=== PATIENT | female | born 1970 | race Caucasian/White ===

== ENCOUNTER → 2016-11-19 | Outpatient (CLI) | payer OTHER ==
--- NOTE | 2016-11-19 13:10 | PAP/PSG TECHNICIAN REPORT ---
[facility] Financial Representative Polysomnogram Report Study name: None Report date: 11/19/2016 Study date: 11/19/2016 Referring Physician: Master Schulte M.D. Name: JOSE ENRIQUE PAULSON Interpreting Physician: Ziyad Schulte M.D. Date of : 1970 Financial Representative: Kanwal Terrell RPS. Sex: Female Age: 46 StudyType: PSG Weight: 205 lbs Height: 46 years, Height 5' 1" Neck Circum: BMI: 38.73 Medications: Vitamin D3 [id number], Bactroban 2%, Albuterol, Asmanex Patient History Patient has a history of feeling tired all of the time. She is unsure if she snores, but has never been told that she stops breathing. She started working third shift in September of this year and she often has difficulty sleeping during the day. She stated that she does wake with headaches, but not every day. [place] Sleepiness Scale is 11/24. ETCO2 monitoring was done. Parameters Monitored NPSG: E1-M2, E2-M1, Fp1-M2, Fp2-M1, F3-M2, F4-M2, F4-M1, C3-M2, C4-M2, C4-M1, O1-M2, O2-M2, O2-M1, T3-M2, T4-M1, P3-M2, P4-M1, CHIN1, CHIN2, HR, EKG, Legs, PFLOW, SNOR, FLOW, CFLOW, Tidal Volume, THOR, ABDO, SpO2, PLTH, CPRESS, ETCO2 Wave, ETCO2, pH Sleep Architecture Sleep Stages Time at Lights Off 8:59:54 AM STAGES Time (min.) TST (%) Time at Lights On 12:47:24 PM Wake 66.0 -- Total Recording Time (TRT) 228.00 min. N1 21.0 13 Total Sleep Period (TSP) 208.0 min. N2 126.5 78 Total Sleep Time (TST) 161.5min. N3 14.0 9 Awake Time 66.5 min. REM 0.0 0 Wake after Sleep Onset 54.5 min. Sleep Efficiency (SE) 71 % Sleep Onset Latency (MISTI) 11.5 min. Number of Stage 1 Shifts None Awakenings 21 Stage Changes 70 Number of REM periods N/A REM 0.0 0 REM Latency NONE min. NREM 161.5 100 Body Position Analysis Supine Right Left Side Prone Vertical Total Sleep Time (min.) 60.1 61.9 61.5 123.40 0.2 4.4 Total Sleep Time (%) 24% 38% 38% 76 0% 100% Total Sleep Time REM (min.) 0.0 0.0 0.0 None 0.0 0.0 Total Sleep Time NREM (min.) 38.0 61.9 61.5 None 0.0 0.1 Intermittent Wake (min.) 22.1 12.0 27.4 None 0.2 4.3 Total Sleep Period (%) 27% None None None None None Arousals Myoclonus (PLM) * Events Count Index Events Count Index Spontaneous 23 9 Events Awake (PLMW) 2 1.8 Respiratory 1 0.4 Events Asleep w/ Arousal (PLMA) 1 0.4 PLM 1 0 Events Asleep w/o Arousal (PLMS) 22 8.2 Snoring 0 0 Total Asleep 23 8.5 Total 25 9 Total 25 7 Respiratory Analysis * CA OA MA CH H RERA Total Count 0 0 0 0 2 0 2 Index 0.0 0.0 0.0 0 0.7 0 0.7 Mean Duration 0.0 0.0 0.0 0.00 24.5 0.0 24.5 Longest Duration 0.0 0.0 0.0 0.00 0.0 0.0 34.8 Respiratory Event Summary Total Supine ~Supine Right Left Prone REM NREM Apneas Count 0 0 0 0 0 N/A N/A 0 Index 0.0 0 0 0.0 0.0 N/A N/A 0 Hypopneas (4% Desat) Count 2 1 1 0 1 N/A N/A 2 Index 0.7 1.6 0 0.0 1.0 N/A N/A 0.7 Apneas & All Hypopneas Count 2 1 1 0 1 N/A N/A 2 Index 0.7 2 0 0 1 N/A N/A 0.7 Respiratory Events (Property Field Adjuster+All Hyp+RERA) Count 2 1 1 0 1 N/A N/A 2 Index 0.7 2 0 0.0 1.0 N/A N/A 0.7 Respiratory Related Arousal Count 1 1 1 0 1 N/A N/A 1 Index 0.4 0 0 0 1 N/A N/A 0 Snoring Analysis Supine Right Left Prone REM NREM Total Snore duration 0.5 min Snores count 14 0 9 N/A N/A 23 23 Snore mean duration 1.2 Sec Snores index 22 0 9 N/A N/A 8.5 8.5 TST with snoring (%) 0.3% SpO2 Analysis Total REM NREM Awake <50% 0.0 min. 0.0 min. 0.0 min. 0.0 min. 51 - 60% 0.0 min. 0.0 min. 0.0 min. 0.0 min. 61 - 70% 0.0 min. 0.0 min. 0.0 min. 0.0 min. 71 - 80% 0.5 min. 0.0 min. 0.2 min. 0.2 min. 81 - 90% 7.0 min. 0.0 min. 5.6 min. 1.4 min. 91 - 100% 212.0 min. 0.0 min. 152.8 min. 59.2 min. Average 94 0 94 95 Minimum SpO2 80 N/A 80 80 Desaturation Event Index 1.6 0.0 2.2 0.0 # Desat. Events below 89% 2 N/A 2 N/A Time(%) with Saturation below 89% 2.1 0.0 1.9 0.2 Time(min.) with Saturation below 89% 4.6 0.0 4.1 0.5 Heart Rate Analysis End Tidal CO2 Analysis Min (bpm) Max (bpm) Average (bpm) TSP (mins) % of TSP Awake 67 112 84 Above 55 mmHg 0.0 0.0 NREM 64 104 77 50-55 mmHg 0.0 0.0 REM N/A N/A N/A 45-50 mmHg 4.0 2.5 Overall 64 104 77 40-45 mmHg 94.4 58.5 35-40 mmHg 36.3 22.5 30-35 mmHg 12.3 7.6 Average ETCO2 0.2 Supplemental O2 Values Minimum O2 level: None Value Start Time End Time Financial Representative Comments Ms. Paulson slept in the right, left, and supine positions. No cardiac arrhythmias or PLMs were noted. No bruxism noted. Snoring was not noted and scored as a 0 on a scale of 1 through 5. (0=no snoring, 5=snoring loud enough to be heard through a closed door or down the spann way). She was awake often during the test. She stated that she felt awful and she sounded as if she was getting sick, all stuffy and sneezing. She awoke at around 1230 and stated that she felt a migraine coming on and she felt terrible and that she wanted to end the test. Ms. Paulson stated that she didn't think she slept at all. No Hypopneas or apneas were seen. The final report will be interpreted and signed by a sleep physician. The completed physician report will then be placed in the patient medical record. Therapy (cm H2O) 0 TIB (min.) 227.5 TST (min.) 161.5 Sleep Onset (min.) 11.5 REM Onset From Sleep (min.) NONE Sleep Efficiency % 71 Wakefulness (%) 29 Wakefulness (min.) 66.5 NREM 1 (%) 13 NREM 1 (min.) 21.0 NREM 2 (%) 78 NREM 2 (min.) 126.5 NREM 3 (%) 9 NREM 3 (min.) 14.0 REM (%) 0 REM (min.) 0.0 # Arousals 25 Arousal Index 9 # Snore 23 Snore Index 8.5 AHI 0.7 AHI Supine 2 AHI Non-Supine 0 NREM AHI 0.7 REM AHI N/A RDI 0.7 # Obstructive Apnea 0 # Central Apnea 0 # Mixed Apnea 0 # Hypopneas 2 RERAs 0 Total Respiratory Events 2 Time Below SpO2 89% (min.) 4.1 Mean NREM SpO2 (%) 94 Mean REM SpO2 (%) N/A Mean Sleep SpO2 (%) 94 Min NREM SpO2 (%) 80 Min REM SpO2 (%) N/A Position Supine (min.) 60.1 Position Non-supine (min.) 123.5 LM Index Sleep 8.5 LM Index NREM 8.5 LM Index REM N/A Mean Heart Rate (bpm) 77 Min Heart Rate (bpm) 64
--- NOTE | 2016-12-06 21:34 | POLYSOMNOGRAPH REPORT ---
REFERRING PERSON: Ziyad Schulte MD PERFORMANCE REPORTER: Kanwal Terrell Ms. Paulson is a 46-year-old female, who complains of excessive daytime sleepiness. She is not sure if she snores, but has never been told that she stops breathing when she sleeps at night. She started working third shift in September of this year and has had difficulty sleeping during the day. She often awakes with headaches, but not daily headaches. Her [place] sleepiness scale score on the evening of this study is 11. BMI is 38.73. Following the technical and digital specifications of the [place] [employer] (AASM) a standard diagnostic polysomnogram was performed monitoring EEG, EOG, EMG (chin and leg deviations), oxygen saturation, body position, digital video, respiratory effort and airflow. The sleep Stage and event scoring was based on the AASM Manual for the Scoring of Sleep and Associated Events 2007 edition. Apneas are defined as a drop in the peak thermal sensor excursion by >90% of baseline for at least 10 seconds. Hypopneas were scored using the 4% oxygen desaturation rule (4A-[employer]ic[employer]) and a decrease in the nasal pressure excursions by >30% of baseline for at least 10 seconds. Respiratory effort-related arousal (RERA's) is defined as a sequence of breaths lasting at least 10 seconds characterized by increasing respiratory effort or flattening of the nasal pressure waveform leading to an arousal from sleep when the sequence of breaths does not meet criteria for an apnea or hypopnea. Apnea Hypopnea index (AHI) is defined as the number of apneas and hypopneas occurring in an hour of sleep. Respiratory disturbance index (RDI) is defined as the number of apneas, hypopneas, and RERA's occurring in an hour of sleep. Ms. Paulson's total sleep period time was 208 minutes. Total sleep time was only 161.5 minutes. Sleep efficiency was 71%. Latency to sleep onset was 11.5 minutes with wake after sleep onset of 54.5 minutes. Total non-REM sleep time for the entire duration of this study was 161.5 minutes. She spent 13% of that time in N1 sleep, 78% in N2 sleep, and 9% in N3 sleep. There were 25 cortical arousals from sleep. One of these arousals was due to respiratory events, one due to periodic limb movements of sleep and the remaining 23 were spontaneous. There were 23 periodic limb movements noted on this test. Limb movement index was 8.5. Limb movement with arousal index was 0.4. There were no central obstructive or mixed apneas on this test. There were 2 hypopneas and no RERA. Apnea-hypopnea index was 0.7, which is normal. There were 23 snoring events. Total sleep time with snoring was 0.3%. Mean saturation was 94% with desaturations transiently to 80%; however, saturations remained below 89% for only 4.6 minutes of recorded time. There was no cardiac ectopy noted on this study. Heart rates ranged from a low of 64 beats per minute to a high of 104 beats per minute during sleep. End tidal CO2 was recorded on this test. This data appears to be close to complete. End tidal CO2s were between 40 and 45 mmHg for 58.5% of total sleep period time, between 35 and 40 mmHg for 22.5% and between 30 and 35 mmHg for 7.6% of total sleep period time. IMPRESSION AND PLAN: A 46-year-old female without evidence of sleep disordered breathing, nocturnal hypoxemia, bruxism, parasomnia or clinically significant periodic limb movements of sleep on this test.
== END | disposition home or self-care (01) ==
LOC: C.NEUR 07:58
PROVIDERS: ATTEND Family Medicine
DX: F51.11 Primary hypersomnia (principal); R06.83 Snoring; R53.81 Other malaise; R13.10 Dysphagia, unspecified; R53.83 Other fatigue

== ENCOUNTER 2017-06-19 11:00 | Emergency (ER) | payer OTHER ==
[~2017-06-19] VITALS: Ht 154.9 cm; Wt 92.9 kg
[2017-06-19 11:07] VITALS: Ht 154.9 cm; Wt 92.9 kg
--- NOTE | 2017-06-19 11:54 | EMERGENCY ROOM VISIT NOTE ---
ED Visit Note First contact with patient: 11:27 CHIEF COMPLAINT: Dog bite HISTORY OF PRESENT ILLNESS: This 47-year-old female patient presents to the emergency department 7 days after being bitten by a dog on her right forearm while [place] the dog park[place] The patient tried to contact the owners and was unable. The patient did go to an urgent care center and get the wound cleaned out. She was also put on antibiotics. She denies any signs of infection such as redness or swelling.. REVIEW OF SYSTEMS: A 6 system review of systems was completed with positives and pertinent negatives listed in the HPI. ALLERGIES: Doxycycline, penicillin, sulfa MEDICATIONS: Reviewed PMH: Fibromyalgia. SOCIAL HISTORY: She does not smoke or drink alcohol. She lives at home.. PHYSICAL EXAM: Vital Signs: Reviewed Nurse's notes, vital signs stable. GENERAL : 47-year-old female, anxious in appearance,, in no acute distress, well- developed, well-nourished. HEAD: Atraumatic, without temporal or scalp tenderness. EYES: PERRLA, EOMI, no discharge or injection. SKIN: Well-healing puncture wound noted to the right forearm. No signs of infection. NEUROLOGICAL : Alert and oriented to person place and time. Normal sensation to light and sharp touch. MUSCULOSKELETAL: Motor functions grossly intact of the arm. Full range of motion. EMERGENCY DEPARTMENT COURSE: I examined the patient. The patient was given RIG 20 Units/kg. . The patient was given an Imovax injection IM. The patient was observed for 20 minutes with no reaction. The patient was discharged home in stable condition. DIAGNOSIS: Rabies prophylaxis Dog bite DISCHARGE INSTRUCTIONS: Today is day 0. Return to the ER on days 3, 7, 14, and 28 for subsequent vaccinations. Return sooner or follow up with your family doctor for signs of infection (increased redness, discharge, fever) or for complications with the vaccine series.
[2017-06-19] MEDS ORDERED: RABIES VACCINE (IMOVAX) HUMAN DIPL CELL 2.5 INTER.UNIT/ML SYR IM. ONE (12:00)
[2017-06-19] MEDS ORDERED: RABIES IMMUNE GLOBULIN (HUMAN) 150 INTER.UNIT/ML 2 ML VIAL IM. ONE (12:00)
[2017-06-19 13:59] VITALS: BP 152/93; PULSE 93; TEMP 36.8; O2SAT 95
== END 2017-06-19 14:00 | disposition home or self-care (01) ==
LOC: C.EDB 11:01 → C.EDD 14:00
DX: Z23 Encounter for immunization (principal); S51.851A Open bite of right forearm, initial encounter; W54.0XXA Bitten by dog, initial encounter; Z20.3 Contact with and (suspected) exposure to rabies; M79.7 Fibromyalgia

== ENCOUNTER 2017-06-22 12:02 | Emergency (ER) | payer OTHER ==
[~2017-06-22] VITALS: Ht 154.9 cm; Wt 94.0 kg
[2017-06-22 12:06] VITALS: TEMP 36.8; Ht 154.9 cm; Wt 94.0 kg
[2017-06-22] MEDS ORDERED: RABIES VACCINE (IMOVAX) HUMAN DIPL CELL 2.5 INTER.UNIT/ML SYR IM. ONE (12:45)
--- NOTE | 2017-06-22 12:48 | EMERGENCY ROOM VISIT NOTE ---
ED Visit Note First contact with patient: 12:38 Chief Complaint: Rabies Return Visit History of Present Illness: This patient is a 47 year old female appearing her stated age who presents to the Emergency Department for their second Rabies Vaccination Injections. The patient reports that they had no reaction to previous injection. Patient denies the development of any fevers, chills, sweats, or URI symptoms. Medications: Unchanged from previous visit. Allergies: As noted below PMH: Unchanged from previous visit. SHx: Patient lives locally ROS: All pertinent positive and negative review of systems are appropriately documented in the History of Present Illness. Physical Exam: VITAL SIGNS - Vital signs and Nursing Notes were reviewed. Stable. GENERAL -47-year-old female, well-developed, well-nourished, and in no acute distress. SKIN - Without rashes or lesions. CARDIAC - RRR with normal S1 & S2. No murmurs, rubs, or gallops appreciated. RESPIRATORY - Clear to auscultation bilaterally. No wheezes, rales, or rhonchi appreciated. NEURO - Patient is A&O, and communicates appropriately with the provider. ED Course: Previous ED visit note was reviewed by myself prior to patient evaluation. Patient reports no reaction to the previous injection(s) she notes that she did experience a slight amount of sleepiness, cramps in right arm soreness but no anaphylaxis or hives. Patient received 2.5 and her unit of Imovax intramuscularly. Patient was observed in the Emergency Department for greater than 20 minutes prior to discharge without signs of reaction. Patient was educated on worrisome symptoms for return visit to the Emergency Department. Patient discharged to home with the intent for follow-up in the Emergency Department as scheduled for the remainder of their injections. Current/Historical Medications No Active Prescriptions or Reported Meds Allergies Coded Allergies: Tetracyclines (Verified Allergy, Unknown, 06/22/17) Uncoded Allergies: DOXYCLINE-RASH (Allergy, Unknown, 10/26/02) DOXYCYCLINE MONOHYDRATE (Generic Allergy) (Allergy, Unknown, Y, 06/19/17) IV DYE (Allergy, Unknown, unknown, 06/19/17) MOLD DUST,CATS (Allergy, Unknown, 10/26/02) N (Allergy, Unknown, 10/26/02) NKA (Allergy, Unknown, 10/26/02) Vital Signs Date Time Temp Pulse Resp B/P (MAP) Pulse Ox O2 Delivery O2 Flow Rate FiO2 06/22/17 12:06 36.8 79 18 158/90 96 Room Air Departure Information Impression Primary Impression: Rabies, need for prophylactic vaccination against Dispostion Home / Self-Care Condition GOOD Prescriptions No Active Prescriptions or Reported Meds Referrals No Doctor, Assigned (PCP) Patient Instructions My [facility] Additional Instructions Discharge Instructions: You were seen in the Emergency Department today for your Rabies Prophylaxis Injection. You should continue to follow the Discharge Instructions outlined for you in your initial Emergency Department visit. Return on days 7 and 14 for subsequent injections. Return to the emergency department if your symptoms worsen despite treatment course outlined above.
[2017-06-22 13:19] VITALS: BP 146/97; PULSE 76; O2SAT 99
== END 2017-06-22 13:16 | disposition home or self-care (01) ==
LOC: C.EDB 12:04 → C.EDD 13:16
DX: Z23 Encounter for immunization (principal); Z20.3 Contact with and (suspected) exposure to rabies

== ENCOUNTER 2017-06-26 11:29 | Emergency (ER) | payer OTHER ==
[~2017-06-26] VITALS: Ht 154.9 cm; Wt 94.3 kg
[2017-06-26 11:40] VITALS: BP 125/69; PULSE 81; TEMP 36.6; O2SAT 97; Ht 154.9 cm; Wt 94.3 kg
[2017-06-26] MEDS ORDERED: RABIES VACCINE (IMOVAX) HUMAN DIPL CELL 2.5 INTER.UNIT/ML SYR IM. ONE (12:15)
--- NOTE | 2017-06-26 12:16 | EMERGENCY ROOM VISIT NOTE ---
ED Visit Note First contact with patient: 12:01 CHIEF COMPLAINT: Rabies Shot #3 HISTORY OF PRESENT ILLNESS: Patient is a 47-year-old white female who returns to the emergency department as advised for her third rabies vaccination. She reports some fatigue and stomach upset from the prior injections, otherwise no other problems or concerns. Bite site has healed. REVIEW OF SYSTEMS: Review of systems as per HPI. All other systems reviewed were negative. At least 3 systems reviewed. PMH: Reviewed and unchanged from prior visit SOCIAL HISTORY: Patient lives at home. PHYSICAL EXAM: Vital Signs: Reviewed Nurse's notes. HEAD: Atraumatic, without temporal or scalp tenderness. EYES: PERRL, EOMI, no discharge or injection. SKIN: Normal. NEUROLOGICAL: Alert and cooperative. Sensory and motor functions grossly intact. EMERGENCY DEPARTMENT COURSE: The patient was given Imovax IM, observed and then discharged. She will return in one week for her final vaccine. Medication reconciliation: I attest that I have personally reviewed the patient' s current medication list. Blood pressure screening : Patient was found to have normal blood pressure on screening and does not require follow-up. Current/Historical Medications No Active Prescriptions or Reported Meds Allergies Coded Allergies: Doxycycline (Unverified Allergy, Severe, RASH, 06/26/17) Tetracyclines (Verified Allergy, Unknown, 06/26/17) Iodinated Diagnostic Agents (Unverified Adverse Reaction, Unknown, ., ) Vital Signs Date Time Temp Pulse Resp B/P (MAP) Pulse Ox O2 Delivery O2 Flow Rate FiO2 06/26/17 11:40 36.6 81 16 125/69 97 Room Air Medications Administered Medications (Trade) Dose Ordered Sig/Jacy Route Start Time Stop Time Status Last Admin Dose Admin Rabies Vaccine Human Diploid Cell (Imovax Rabies) 2.5 interunit ONCE ONCE IM. 06/26/17 12:15 06/26/17 12:16 DC 06/26/17 12:21 2.5 INTERUNIT Departure Information Impression Primary Impression: Rabies, need for prophylactic vaccination against Prescriptions No Active Prescriptions or Reported Meds Referrals No Doctor, Assigned (PCP) Patient Instructions My [facility] Additional Instructions Return to the emergency department on 07/03 for your final vaccination, sooner for any problems/concerns.
== END 2017-06-26 12:26 | disposition home or self-care (01) ==
LOC: C.EDB 11:30 → C.EDD 12:26
DX: Z23 Encounter for immunization (principal); Z20.3 Contact with and (suspected) exposure to rabies

== ENCOUNTER 2017-07-03 10:33 | Emergency (ER) | payer OTHER ==
[~2017-07-03] VITALS: Ht 154.9 cm; Wt 94.4 kg
[2017-07-03 10:49] VITALS: TEMP 36.9; Ht 154.9 cm; Wt 94.4 kg
[2017-07-03] MEDS ORDERED: RABIES VACCINE (IMOVAX) HUMAN DIPL CELL 2.5 INTER.UNIT/ML SYR IM. ONE (11:00)
--- NOTE | 2017-07-03 11:03 | EMERGENCY ROOM VISIT NOTE ---
ED Visit Note First contact with patient: 10:54 CHIEF COMPLAINT: Need last rabies vaccine HISTORY OF PRESENT ILLNESS: This 47-year-old female presents the ER for her last rabies vaccine. The patient states she did not have any problems with her prior vaccines. She states the dog bite on her right arm has healed well. She was compliant with the antibiotics. REVIEW OF SYSTEMS: 6 system review was performed and was negative unless stated otherwise in history of present illness. PMH: The patient is healthy; fibromyalgia SOCIAL HISTORY: Patient denies any tobacco or alcohol use PHYSICAL EXAM: Vital Signs: Were reviewed Reviewed Nurse's notes. GENERAL: 47- year-old white female appears in no acute distress. MENTAL Status: Alert and oriented 3. SKIN: Right forearm with several scabbed puncture wounds without any signs of infection. EMERGENCY DEPARTMENT COURSE: The patient was evaluated. The patient was given Imovax IM. The patient was discharged home in stable condition. DIAGNOSIS: Post exposure rabies prophylaxis DISCHARGE INSTRUCTIONS: No further vaccines necessary. Current/Historical Medications No Active Prescriptions or Reported Meds Allergies Coded Allergies: Doxycycline (Unverified Allergy, Severe, RASH, 06/26/17) Tetracyclines (Verified Allergy, Unknown, 06/26/17) Iodinated Diagnostic Agents (Unverified Adverse Reaction, Unknown, ., ) Vital Signs Date Time Temp Pulse Resp B/P (MAP) Pulse Ox O2 Delivery O2 Flow Rate FiO2 07/03/17 10:49 36.9 75 18 151/90 96 Room Air Departure Information Prescriptions No Active Prescriptions or Reported Meds Referrals No Doctor, Assigned (PCP) Patient Instructions [facility]
[2017-07-03 11:18] VITALS: BP 150/102; PULSE 74; O2SAT 100
== END 2017-07-03 11:16 | disposition home or self-care (01) ==
LOC: C.EDB 10:34 → C.EDD 11:16
DX: Z20.3 Contact with and (suspected) exposure to rabies (principal); Z23 Encounter for immunization

== ENCOUNTER → 2018-01-10 | Outpatient (CLI) | payer OTHER ==
--- NOTE | 2018-01-10 14:12 | MAMMOGRAPHY REPORT ---
UNILATERAL LEFT DIGITAL DIAGNOSTIC MAMMOGRAM TOMOSYNTHESIS WITH CAD AND TARGETED LEFT ULTRASOUND: 12/14 CLINICAL HISTORY: 47-year-old woman presents with approximately 5 episodes of spontaneous clear left nipple discharge, approximately a few drops per episode. She also reports pain and tenderness along the superior aspect of the left breast extending into the axillary region. No skin erythema or defin ite palpable lump. History of prior reduction mammoplasty. TECHNIQUE: Left breast tomosynthesis in addition to standard 2D mammography was performed. Current st udy was also evaluated with a Computer Aided Detection (CAD) system. COMPARISON: Comparison is made to exams dated: 03/25/2017 mammogram, 03/23/2016 mammogram, and 5 mammogram. BREAST COMPOSITION: There are scattered areas of fibroglandular density in the left breast. FINDINGS: There is evidence of prior reduction mammoplasty. 2 stable asymmetries in the medial, midd le to anterior left breast on the CC view that have the appearance of normal fibroglandular tissue on the tomosynthesis images. No obvious new mass, developing asymmetry, architectural distortion or cl uster of suspicious microcalcifications is seen. Targeted ultrasound was performed throughout the left breast in the area of tenderness pointed out by the patient's throughout the superior left breast extending into the axillary region, and also in th e periareolar and retroareolar breast to assess for a possible cause of the patient's nipple discharg e. Throughout the superior breast from the 10:00 through 2:00 axes, sonographically normal tissue is seen without a suspicious solid or cystic mass. A few morphologically normal lymph nodes are identi fied in the left axilla without suspicious lymphadenopathy. There is no evidence of duct ectasia or an intraductal mass or other suspicious mass in the periareolar/retroareolar left breast to explain t he patient's nipple discharge. IMPRESSION: ACR BI-RADS CATEGORY 2: BENIGN, TARGETED ULTRASOUND ACR BI-RADS CATEGORY 2: BENIGN There is no mammographic or targeted sonographic evidence of malignancy or other suspicious abnormali ty in the left breast to explain the 5 episodes of spontaneous clear nipple discharge. Therefore, kwon rgical consultation is recommended, and I will leave it up to the surgeon whether a breast MRI would be useful. These results and recommendations were discussed with the patient at the time of the exam. Approximately 10% of breast cancers are not detected with mammography. A negative mammographic report should not delay biopsy if a clinically suggestive mass is present. Sonja Marin M.D. ay/:01/10/2018 08:56:20 Field Auditor: Nelia Mckeon, [facility] letter sent: Normal 1/2 BI-RADS Code: ACR BI-RADS Category 2: Benign Ultrasound BI-RADS: ACR BI-RADS Category 2: Benign
== END | disposition home or self-care (01) ==
LOC: C.MAMM 07:34
PROVIDERS: ATTEND Nurse Practitioner
DX: N63.20 Unspecified lump in the left breast, unspecified quadrant (principal); N64.52 Nipple discharge